=== PATIENT | male | born 1955 | race Caucasian/White ===

== ENCOUNTER 2017-07-13 11:30 | Emergency (ER) | payer OTHER ==
[~2017-07-13] VITALS: Ht 182.9 cm; Wt 100.0 kg
[2017-07-13 11:37] VITALS: BP 119/76; PULSE 50; RESP 18; O2SAT 96
--- NOTE | 2017-07-13 12:02 | DRSVH ---
PROCEDURE: X-RAY CHEST ONE VIEW, PORTABLE ([id number]) INDICATIONS: chest pain TECHNIQUE: One view of the chest was acquired. COMPARISON: None. FINDINGS: Surgical changes and devices: None. Lungs and pleura: No pleural effusions or pneumothorax. Lungs are clear. Mediastinum: Mediastinal contours appear normal. Heart size is normal. Bones and chest wall: No suspicious bony lesions. Overlying soft tissues appear unremarkable. IMPRESSION: No acute cardiopulmonary disease. Dictated by: Sasha Newsome M.D. on 07/13/2017 at 12:00 Approved by: Sasha Newsome M.D. on 07/13/2017 at 12:00
[2017-07-13 12:13] LABS: EOSINOPHILS % (AUTO) 4.6 % (0-5); MONOCYTES % (AUTO) 10.6 % (4-12); Mean Corpuscular Hemoglobin 30.2 pg (27.0-35.0); Platelet Count 232 bil/L (150-400)
[2017-07-13 12:31] LABS: TROPONIN T 0.01 ug/L (0.0-0.011)
[2017-07-13 12:42] LABS: Magnesium 2.1 mg/dL (1.6-2.6)
--- NOTE | 2017-07-13 14:00 | ED.REPORT ---
HPI-Chest Pain 40 and Over Date of Service Jul 13, 2017 ED Provider: Laurita De La Rosa MD The pt is a 62 y/o male who presents to the ED complaining of midsternal non- radiating chest pain onset this morning. The pt reports the chest pain started when he was moderately active at work this morning. He describes his chest pain as a pressure, rated at 3/10 at its worst. The pain waxes and wanes, but has been progressively worse since the morning. He denies diaphoresis, diarrhea, vomiting, fatigue, SOB, swelling of the ankles, urinary symptoms, bowel-related symptoms, or any other symptoms at this time. The pt takes metoprolol for his heart, and reports having a low risk stress test within the last year and a recent cardiac echo (ER 40-45%). 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 Morales Nursing Notes Stated Complaint: CHEST PAIN Chief Complaint: Chest Pain Nursing Notes Reviewed: Yes Allergies: Coded Allergies: No Known Allergies (Unverified Allergy, Unknown, 03/12/15) General Time Seen by MD: 11:55 Chief Complaint Chest pain Hx Obtained From: Patient Arrived By: Walk-in Sudden in Onset?: Yes Onset Occurred: 1 - 4 hours ago Symptom Duration: Waxes and wanes Location: : Chest left: Chest right Quality: Pressure Radiation: : Does not radiate Severity: Current: Pain level 2 out of 10 Severity: Maximum: Pain level 3 out of 10 Recent Healthcare: No recent doctor visit, No recent hospitalization Similar Sx Previous: No Past Medical History Past Medical History Notes: normally has low BP Past Medical History Reports: Congestive heart failure Past Surgical History Knee surgery Smoking History Former Smoker (heavy smoker), Never Smoker Social History Alcohol Use: "Social" Drug Use: Denies drug use Ambulatory Status Independent Review of Systems Constitutional: Denies: Fatigue Respiratory: Denies: Shortness of breath Cardiovascular: Reports: Chest pain GI: Denies: Constipation, Diarrhea, Hematochezia, Vomiting Musculoskeletal: Denies: Extremity swelling Skin: Denies Diaphoresis Complete sys rev & neg: except as marked. Male: Denies Dysuria, Denies Hematuria, Denies Incontinence, Denies Urinary frequency, Denies Urinary urgency, Denies Urination decreased, Denies Urination increased Physical Exam Initial Vital Signs Vital Signs (First) Date Time Temp Pulse Resp B/P Pulse Ox O2 Delivery O2 Flow Rate FiO2 07/13/17 11:37 36.3 50 18 119/76 96 Room Air Initial VS: Reviewed Head / Eyes: Atraumatic, Normocephalic Skin: Warm, Dry Neurologic: Alert, Oriented, Nonfocal Psychiatric: Mood/affect normal, Behavior normal General/Constitutional: Awake, Alert Respiratory / Chest: Atraumatic, Breath sounds NL, Breath sounds = bilat, No respiratory distress Cardiovascular: Heart rate NL, No murmurs Heart Rate / Rhythm: Positive: Irregular rhythm Well perfused Abdomen: Atraumatic, Soft, Non-tender Small non-incarcerated hernia on the abdominal wall Lower Extremity / Pelvis / MS: Atraumatic, Inspection NL, Neurologic intact, Vascular intact Interpretation & Diagnostics Lab Results Interpretation Result Diagram: 07/13/17 1200 07/13/17 1200 Test 07/13/17 12:00 White Blood Count 6.8th/mm3 (3.8-10.1) Red Blood Count 4.83mil/mm3 (4.40-5.80) Hemoglobin 14.6g/dL (13.8-17.2) Hematocrit 42.5% (41.0-50.0) Mean Corpuscular Volume 88.0fL (81-100) Mean Corpuscular Hemoglobin 30.2pg (27.0-35.0) Mean Corpuscular Hemoglobin Concent 34.4% (32.0-37.0) Red Cell Distribution Width 13.1% (12.3-15.4) Platelet Count 232bil/L (150-400) Neutrophils (%) (Auto) 51.0% (40-74) Lymphocytes (%) (Auto) 32.7% (14-46) Monocytes (%) (Auto) 10.6% (4-12) Eosinophils (%) (Auto) 4.6% (0-5) Basophils (%) (Auto) 1.0% (0-3) Sodium Level 139mEq/L (134-144) Potassium Level 4.5mEq/L (3.5-5.2) Chloride Level 103mEq/L (97-108) Carbon Dioxide Level 20mmol/L (18-29) Blood Urea Nitrogen 13mg/dL (8-27) Creatinine 0.84mg/dL (0.76-1.27) Estimat Glomerular Filtration Rate 98mL/min (>59) Glucose Level 98mg/dL (60-99) Calcium Level 8.9mg/dL (8.5-10.1) Magnesium Level 2.1mg/dL (1.6-2.6) Total Bilirubin 0.5mg/dL (0.0-1.2) Aspartate Amino Transf (AST/SGOT) 24U/L (0-50) Alanine Aminotransferase (ALT/SGPT) 29U/L (0-44) Alkaline Phosphatase 52U/L (25-160) Troponin T 0.010ug/L (0.0-0.011) Total Protein 7.3g/dL (6.4-8.4) Albumin 4.3g/dL (3.4-5.0) Hold Sandoval Top Tube Received (Received) ECG Interpretation ECG Interpretation: Multifocal atrial tachycardia with rate of 97 No ischemic changes Atrial premature complexes Porlonged QT interval Time: 12:04 Interpreted by: ED physician X-Ray Chest Interpretation Chest Xray Interpretation: IMPRESSION: No acute cardiopulmonary disease. Dictated by: Sasha Newsome M.D. on 07/13/2017 at 12:00 View: Portable, 1 view Interpretation / Wet Read by: Interpret - Radiologist Re-Eval/Medical Decision Med Decision/Clinical Course 62-year-old gentleman presents with 2 out of 10 frontal chest pressure substernal. 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 Has a history of atrial arrhythmias. Was concerned and wanted to be further evaluated. No diaphoresis nausea dyspnea orthopnea lower extremity edema. No fevers cough chills recently The self described subtle substernal chest pressure 2 out of 10 was present for approximately 3 hours as resolve spontaneously while in the emergency room. Labs were drawn approximately 4 hours after onset and were entirely unremarkable including a negative troponin. EKG is significant for multi-atrial tachycardia without any ischemic changes. At this point I don't believe that this pressure was cardiac related he has had a recent low risk stress test and is followed by cardiology. We will ask him to follow-up with cardiology after this visit and will be discharged home. Source of Hx: Old records Time of Eval: 14:57 Re-Evaluation/Progress Note: Pt rechecked. Informed pt that no life-threatening issues were found and plan for discharge. The pt understands and agrees with plan for discharge. F/U instructions and RTER warnings given. All questions addressed at this time. Counseled Regarding: Diagnosis, Lab results, Need for follow-up, When/why to return to ED Discharge & Departure Primary Impression: Non-cardiac chest pain Additional Impression: Multifocal atrial tachycardia Disposition: Home Discharge Condition All VS Reviewed: Yes Condition: Stable Additional Instructions: Thank you for coming in today. I'm not finding any life-threatening issues on your workup today Specifically, I am not finding evidence of acute heart attack or cardiac related chest pain. I believe it is safe for you to go home now, but if you do have recurrent pain I would recommend returning to the emergency department. I would like to ask that you follow-up with your photographic colorist as well as your primary care physician within the next 1-2 weeks I wish you the best. Referrals: Darryl Quinones MD (PCP) Scribe Attestation Portions of this note were transcribed by Fausto Oconnell and Yue Lujan. I , Dr. De La Rosa personally performed the history, physical exam and medical decision-making; I reviewed and confirmed the accuracy of the information in the transcribed note. Signed by: Fausto Oconnell and Yue Lujan, [place], 07/13/17. copies to: Darryl Quinones MD, Shawna L MD Jul 13, 2017 13:59 Fausto Oconnell Jul 13, 2017 15:03 Yue Green Jul 13, 2017 15:25 Yue Green Jul 13, 2017 15:25
[2017-07-13 14:12] VITALS: BP 108/65; PULSE 71; RESP 17; O2SAT 96
[2017-07-13 15:00] VITALS: BP 112/57; PULSE 63; RESP 18; O2SAT 96
== END 2017-07-13 15:00 | disposition home or self-care (01) ==
LOC: SED 11:30
DX: R07.89 Other chest pain (principal); I47.1 Supraventricular tachycardia; I50.9 Heart failure, unspecified; Z87.891 Personal history of nicotine dependence